=== PATIENT | female | born 1985 ===

== ENCOUNTER 2017-04-12 17:15 | Emergency (ER) | payer BC ==
--- NOTE | 2017-04-12 18:36 | ED PDOC ---
Upper Extremity Pain/Injury Time Seen by Provider: 04/12/17 18:25 Chief Complaint (Nursing): Upper Extremity Problem/Injury Chief Complaint (Provider): right arm pain History Per: Patient Additional Complaint(s): 32-year-old right-hand dominant female presents to emergency Department with pain to right upper arm and shoulder that started 2 weeks ago. Patient states when she lifts her right arm she feels pain to right lateral chest wall. No associated shortness of breath or difficulty breathing. Patient was seen at [place] emergency room 2 weeks ago and was given prescriptions for Mobic and Soma but these meds and not helped the pain. She denies any recent trauma or injury, no fever or chills. PMD: Dr. Bueno Past Medical History Reviewed: Historical Data, Nursing Documentation, Vital Signs Vital Signs: Last Vital Signs Temp 99.1 F 04/12/17 18:18 Pulse 70 04/12/17 18:18 Resp 20 04/12/17 18:18 BP 153/93 H 04/12/17 18:18 Pulse Ox 100 04/12/17 18:18 - Medical History PMH: No Chronic Diseases - Family History Family History: States: No Known Family Hx - Living Arrangements Living Arrangements: With Family - Social History Current smoker - smoking cessation education provided: No Alcohol: None Drugs: Denies - Home Medications Home Medications: Ambulatory Orders Medication Instructions Recorded Cyclobenzaprine [Cyclobenzaprine 10 mg PO TID PRN #20 tab 04/12/17 HCl] Naproxen [Naprosyn] 500 mg PO BID #20 tab 04/12/17 - Allergies Allergies/Adverse Reactions: Allergies Allergy/AdvReac Type Severity Reaction Status Date / Time No Known Allergies Allergy Verified 04/12/17 18:18 Review of Systems ROS Statement: Except As Marked, All Systems Reviewed And Found Negative Constitutional: Negative for: Fever Respiratory: Negative for: Cough Gastrointestinal: Negative for: Nausea, Vomiting Musculoskeletal: Positive for: Other (right arm pain and right chest wall pain for 2 weeks) Physical Exam - Reviewed Nursing Documentation Reviewed: Yes Vital Signs Reviewed: Yes - Physical Exam Appears: Positive for: Well, Non-toxic, No Acute Distress Skin: Negative for: Rash Eye Exam: Positive for: Normal appearance Neck: Positive for: Normal Cardiovascular/Chest: Positive for: Regular Rate, Rhythm. Negative for: Chest Non Tender (Mild tenderness right lateral chest wall with no palpable bony deformity) Respiratory: Positive for: Normal Breath Sounds Gastrointestinal/Abdominal: Positive for: Soft. Negative for: Tenderness Extremity: Positive for: Other (Diffuse tenderness to right shoulder and humerus region with decreased range of motion, full range of motion right elbow , wrist and all digits of right hand with strong right hand boom crane operator) Neurologic/Psych: Positive for: Alert, Oriented - Laboratory Results Urine POC: Negative - ECG O2 Sat by Pulse Oximetry: 100 Pulse Ox Interpretation: Normal - Other Rad CXR w/ right rib series X-Ray: Interpreted by Me, Viewed By Me X-Ray Interpretation: no fx, no dis Right shoulder x-ray X-Ray: Interpreted by Me, Viewed By Me X-Ray Interpretation: no fx, no dis Medical Decision Making Medical Decision Makin-year-old female with right arm pain and right chest wall pain. Plan: CXR with right rib series X-ray right shoulder IM toradol Patient is aware of x-ray results. All questions answered. Prescriptions given for Naprosyn and Flexeril, sling was applied to affected arm. Patient was referred to orthopedist principal consultant for follow up. Procedures - Splinting Location: right arm Pre-Made Type: sling Pre-Proc Neuro Vasc Exam: normal Post-Proc Neuro Vasc Exam: normal Disposition - Clinical Impression Clinical Impression: Tendinitis of shoulder - Patient ED Disposition Is Patient to be Admitted: No Counseled Patient/Family Regarding: Studies Performed, Diagnosis, Need For Followup, Rx Given - Disposition Referrals: Irwin Jasso MD [Medical Doctor] - Disposition: Routine/Home Disposition Time: 20:00 Condition: STABLE Additional Instructions: Rest, ice and elevate affected areas much as possible. Take prescription medicines as directed as needed for pain. Follow-up with primary doctor or orthopedist for any persistent symptoms. Prescriptions: Cyclobenzaprine [Cyclobenzaprine HCl] 10 mg PO TID PRN #20 tab PRN Reason: Muscle Spasm Naproxen [Naprosyn] 500 mg PO BID #20 tab Instructions: Tendinitis (ED) Forms: [employer] ([place]ay), [facility] ED School/Work Excuse
[2017-04-12 20:28] VITALS: BP 136/81; PULSE 76; RESP 17; TEMP 98.1; O2SAT 99
--- NOTE | 2017-04-13 10:29 | RAD ---
PROCEDURE: Radiographs of the Right Shoulder HISTORY: trauma COMPARISON: No prior. FINDINGS: BONES: No acute fracture. JOINTS: Unremarkable. SOFT TISSUES: Normal. OTHER FINDINGS: None. IMPRESSION: No demonstrated fracture or dislocation.
--- NOTE | 2017-04-13 10:29 | RAD ---
PROCEDURE: Radiographs of the Chest and Right Ribs. HISTORY: trauma COMPARISON: None available. TECHNIQUE: Frontal radiograph of the chest and multiple oblique radiographs of the right ribs were obtained. FINDINGS: RIGHT RIBS: No fracture or focal lesion visualized. LUNGS: Clear. PLEURA: No pneumothorax or pleural fluid. CARDIOVASCULAR: Normal sized heart. No pulmonary vascular congestion. OTHER FINDINGS: None. IMPRESSION: Unremarkable radiographs of the chest and right ribs. No right rib fracture.
== END 2017-04-12 20:16 | disposition home or self-care (01) ==
LOC: H.ER 17:15
DX: M75.81 Other shoulder lesions, right shoulder (principal); R07.81 Pleurodynia
CPT/HCPCS: 71101; 73030; 81025; 96372; 99284; J1885